=== PATIENT | female | born 1960 | race Caucasian/White ===

== ENCOUNTER → 2018-08-13 | Outpatient (CLI) | payer BC ==
--- NOTE | 2018-08-13 14:44 | US ---
EXAMINATION TYPE: US venous doppler duplex LE LT DATE OF EXAM: 08/13/2018 9:18 AM SIDE PERFORMED: LEFT TECHNIQUE: Grayscale, color doppler, spectral doppler imaging performed of the deep veins of the lef t lower extremity. FINDINGS: 1) There is normal flow, compressibility, vascular waveforms. Color flow is present and patency is documented in the following vessels. No DVT or SVT is noted. EIV Common Femoral Vein Deep Femoral Vein Femoral Vein Popliteal Vein Proximal Calf Veins Greater Saph Vein Upper Small Saph Vein 2) There is venous reflux noted at the following venous levels: Left EIV, CFV, GSV IMPRESSION: 1. No evidence for DVT within the left lower extremity imaged from the groin to the upper calf. 2. Left lower extremity venous reflux as noted above.
--- NOTE | 2018-08-15 09:30 | P.ARTDOP ---
Arterial Doppler LOWER EXTREMITY ARTERIAL DOPPLER: DATE OF SERVICE: 08/13/18 Reason for study: Nonhealing foot ulcer. Doppler waveforms: Multiphasic bilaterally throughout. Pulse volume recording: Normal configuration. Pressure gradients: None. Ankle-brachial indices: Greater than 1 bilaterally. Toe pressures:143 on the right, 113 on the left Impression: Normal study
== END | disposition home or self-care (01) ==
LOC: RADUSWWP 08:36
PROVIDERS: ATTEND Internal Medicine Infectious Disease
DX: I87.2 Venous insufficiency (chronic) (peripheral) (principal)
CPT/HCPCS: 93923

== ENCOUNTER → 2019-05-07 | Outpatient (CLI) | payer BC ==
--- NOTE | 2019-05-07 16:24 | CT ---
EXAMINATION TYPE: CT abdomen pelvis w con DATE OF EXAM: 05/07/2019 COMPARISON: None HISTORY: Abdominal pain CT DLP: 1698.6 mGycm Automated exposure control for dose reduction was used. TECHNIQUE: Helical acquisition of images from the lung bases through the pelvis have been completed. CONTRAST: Performed with Oral Contrast and with IV Contrast, patient injected with 100 mL of Isovue 300. FINDINGS: Patient shows post left and change. LUNG BASES: No significant abnormality is appreciated. AORTA: No significant abnormality is appreciated. LIVER/GB: Liver shows low attenuation likely due to hepatic steatosis and the liver is enlarged. Gall bladder is surgically absent. PANCREAS: No significant abnormality is seen. SPLEEN: No significant abnormality is seen. ADRENALS: No significant abnormality is seen. KIDNEYS: Large exophytic simple cyst associated with the right kidney measures 8.7 cm REPRODUCTIVE ORGANS: Not seen BOWEL: Diverticular changes associated with the colon. No bowel obstruction. There is a fold present at the level of the mid ascending colon, the cecum and courses medially. The appendix is not seen. FREE AIR: No Free Air visible. ASCITES: None visible. PELVIC ADENOPATHY: None visualized. RETROPERITONEAL ADENOPATHY: No Retroperitoneal Adenopathy visible. URINARY BLADDER: No significant abnormality is seen. OSSEOUS STRUCTURES: Streak artifact due to patient's bilateral hip prostheses may limit sensitivity w ithin the pelvis. Degenerative disc changes are present visualized spine, there is anterolisthesis gr jose a 1 L4-5. IMPRESSION: Hepatomegaly. Hepatic steatosis. Consider cecal bascule. Postop changes. No evident obstr uction.
== END | disposition home or self-care (01) ==
LOC: RADCTMAIN 13:13
PROVIDERS: ATTEND Surgery
DX: K76.0 Fatty (change of) liver, not elsewhere classified (principal); R16.0 Hepatomegaly, not elsewhere classified; Z98.890 Other specified postprocedural states
CPT/HCPCS: 74177; Q9967

== ENCOUNTER → 2019-09-20 | Outpatient (CLI) | payer BC ==
[2019-09-20 11:43] LABS: Basophils % (A) 1 %; Eosinophils # (A) 0.1 k/uL (0-0.7); Eosinophils % (A) 3 %; HCT 44.6 % (34.0-46.0); HGB 14.4 gm/dL (11.4-16.0); Lymphocytes # (A) 1.5 k/uL (1.0-4.8); Lymphocytes % (A) 42 %; MCH 28.5 pg (25.0-35.0); MCHC 32.4 g/dL (31.0-37.0); MCV 87.8 fL (80.0-100.0); Mean Platelet Volume 8.2; Monocytes # (A) 0.2 k/uL (0-1.0); Monocytes % (A) 7 %; Neutrophils # (A) 1.5 k/uL (1.3-7.7); Neutrophils % (A) 44 %; Platelet Count 173 k/uL (150-450); RBC 5.08 m/uL (3.80-5.40); RDW 12.8 % (11.5-15.5); WBC 3.5 k/uL (3.8-10.6)
[2019-09-20 12:30] LABS: Erythrocyte Sedimentation Rate 8 mm/hr (0-20)
== END | disposition home or self-care (01) ==
LOC: LABWHC1 10:28
PROVIDERS: ATTEND Orthopaedic Surgery
DX: M79.672 Pain in left foot (principal); M25.572 Pain in left ankle and joints of left foot
CPT/HCPCS: 36415; 85025; 85652; 86140

== ENCOUNTER → 2024-10-08 | Outpatient (CLI) | payer MEDICARE, BC ==
[2024-10-08 12:56] VITALS: BP 145/76; PULSE 60; RESP 16; TEMP 98; BMI 39.8
--- NOTE | 2024-10-08 13:26 | P.BASOAP ---
Subjective Progress Note Date: 10/08/24 Principal diagnosis: Morbid obesity Patient returns for recheck. Was last seen 2 years ago. Still having some pain at the port site. Also having some pain along the left chest wall. Believes the band does not have much fluid in it. No significant restriction. No GERD. No vomiting. Weight is up 3 pounds since last visit. Would like to lose 20 pounds more. Patient after her last visit did have an upper and lower endoscopy by GI that she says only showed some mild inflammation on the upper scope. Objective - Vital Signs Vital signs: Vital Signs Temp 98 F 10/08/24 12:54 Pulse 60 10/08/24 12:54 Resp 16 10/08/24 12:54 BP 145/76 10/08/24 12:54 Pulse Ox FiO2 Intake & Output 10/07/24 10/08/24 10/08/24 18:59 06:59 18:59 Weight 105.233 kg - Exam Abdomen: Soft, mild tenderness left chest wall inferiorly along rib cage, no significant port tenderness or skin changes at the port, nondistended Assessment/Plan (1) Morbid obesity Narrative/Plan: 64-year-old female with left upper abdominal pain after previous lap band placement. Options reviewed. Will empty the patient's band at this time. If the patient's pain resolves consider band removal. If the pain is unchanged at the port site consider adding more fluid to the band possibly more than what was removed today. Patient's pain along the left lower inferior chest wall seems to be along the rib cage as the ribs themselves are tender. Possible costochondritis discussed. She will discuss this further with her primary care team. The patient's lap band port was palpated. The site was aseptically prepped. The Jones needle was advanced into the port. A total of 1.2 ml of fluid was removed. Band is now empty. Pressure was held and a sterile dressing was applied. Plan: Date: 10/08/24 Initial Weight: 135.624 kg Initial BMI: 51.2 Current Weight: 105.233 kg Current BMI: 39.8 Type of Surgery: Adjustable Gastric Banding Total Volume in Band: Previous Volume: Volume Removed: Volume Added: Band Size:
== END ==
LOC: BARWHC3 12:44
PROVIDERS: ATTEND Surgery
DX: E66.01 Morbid (severe) obesity due to excess calories (principal); Z68.39 Body mass index [BMI] 39.0-39.9, adult
CPT/HCPCS: 99211

== ENCOUNTER → 2024-11-26 | Outpatient (CLI) | payer MEDICARE ==
[2024-11-26 15:09] VITALS: BP 142/85; PULSE 80; RESP 16; TEMP 97.7; BMI 39.4
--- NOTE | 2024-11-26 15:41 | P.BASOAP ---
Subjective Progress Note Date: 11/26/24 Principal diagnosis: Morbid obesity Patient here today after loosening her band last visit. Denies pain. Says she had forgotten that she was having the pain around her port site. Came in today hoping to have more fluid added to the band then was removed last visit. Says her band was too loose to last visit. Objective - Vital Signs Vital signs: Vital Signs Temp 97.7 F 11/26/24 15:04 Pulse 80 11/26/24 15:04 Resp 16 11/26/24 15:04 BP 142/85 11/26/24 15:04 Pulse Ox FiO2 Intake & Output 11/25/24 11/26/24 11/26/24 18:59 06:59 18:59 Weight 104.326 kg - Exam Abdomen: Soft, nontender, nondistended Assessment/Plan (1) Morbid obesity Narrative/Plan: Patient doing well at this time. Requesting Lap-Band adjustment. Will add 1.5 cc of fluid. If symptoms of port related pain or left upper quadrant pain recur after this fill consider band removal. Patient is agreeable. The patient's lap band port was palpated. The site was aseptically prepped. The Jones needle was advanced into the port. A total of 1.5 ml of fluid was added. Pressure was held and a sterile dressing was applied. Plan: Date: 11/26/24 Initial Weight: 135.624 kg Initial BMI: 51.2 Current Weight: 104.326 kg Current BMI: 39.4 Type of Surgery: Total Volume in Band: 1.4 Previous Volume: 0 Volume Removed: Volume Added: 1.4 Band Size:
== END ==
LOC: BARWHC3 13:27
PROVIDERS: ATTEND Surgery
DX: R10.12 Left upper quadrant pain (principal); E66.01 Morbid (severe) obesity due to excess calories; Z68.39 Body mass index [BMI] 39.0-39.9, adult